=== PATIENT | male | born 1975 | race African-American/Black ===

== ENCOUNTER → 2018-03-19 | Outpatient (REF) | payer BC ==
[2018-03-19 22:02] LABS: APPEARANCE, URINE CLEAR (CLEAR); BACTERIA, URINE AUTO NEGATIVE (NEGATIVE); BILIRUBIN, URINE AUTO NEGATIVE (NEGATIVE); BLOOD, URINE BLOOD NEGATIVE (NEGATIVE); COLOR, URINE YELLOW (YELLOW); GLUCOSE, URINE (UA) AUTO NEGATIVE (NEGATIVE); KETONE, URINE AUTO NEGATIVE (NEGATIVE); LEUKOCYTE ESTERASE, URINE AUTO NEGATIVE (NEGATIVE); MUCUS, URINE SMALL (NEGATIVE); NITRITE, URINE AUTO NEGATIVE (NEGATIVE); PROTEIN, URINE AUTO NEGATIVE (NEGATIVE); RBC, URINE AUTO 0 /HPF (0-3); SPECIFIC GRAVITY URINE AUTO 1.019 (1.002-1.035); SQUAMOUS EPITHELIAL CELL UR AU 0 /HPF (0-6); UROBILINOGEN, URINE AUTO 0.2 mg/dL (0.0-2.0); WBC, URINE AUTO 0 /HPF (0-3)
== END ==
LOC: M LAB REF 09:56
DX: N39.0 Urinary tract infection, site not specified (principal)
CPT/HCPCS: 81001

== ENCOUNTER 2020-06-15 16:36 | Emergency (ER) | payer BC ==
[~2020-06-15] VITALS: Ht 180.3 cm; Wt 84.1 kg
[2020-06-15] MEDS ORDERED: LOSA50TA88 (16:48)
[2020-06-15] MEDS ORDERED: AMLO2.5T3 (16:48)
--- NOTE | 2020-06-15 17:02 | REPVR ---
PROCEDURE INFORMATION: Exam: XR Chest, 1 View Exam date and time: 06/15/2020 4:42 PM Age: 45 years old Clinical indication: Chest pain TECHNIQUE: Imaging protocol: XR of the chest Views: 1 view. COMPARISON: No relevant prior studies available. FINDINGS: Lungs: Unremarkable. No consolidation. Pleural space: Unremarkable. No pleural effusion. No pneumothorax. Heart/Mediastinum: Unremarkable. No cardiomegaly. Bones/joints: Unremarkable. IMPRESSION: No evidence for acute pulmonary disease. Electronically signed by: Austen Campos On 06/15/2020 17:02:46 PM
[2020-06-15 18:13] LABS: BASO # 0.1 10^3/uL (0.0-0.2); EOS # 0.1 10^3/uL (0.0-0.5); EOS % 1.9 % (0.0-3.0); HEMOGLOBIN 12.7 g/dl (13.5-17.5); LYMPH # 1.2 10^3/uL (1.5-5.0); LYMPH % 20.9 % (24.0-44.0); MEAN CORPUSCULAR HEMOGLOBIN 23.3 pg (27.0-33.0); MEAN CORPUSCULAR HGB CONC 29.5 g/dl (32.0-36.5); MEAN CORPUSCULAR VOLUME 78.8 fl (80.0-96.0); MONO # 0.5 10^3/uL (0.0-0.8); MONO % 8.8 % (0.0-5.0); NEUTROPHILS % 66.9 % (36.0-66.0); PLATELET COUNT, AUTOMATED 257 10^3/uL (150-450); RED BLOOD COUNT 5.46 10^6/uL (4.30-6.10); WHITE BLOOD COUNT 5.9 10^3/uL (4.0-10.0)
[2020-06-15 18:24] LABS: INR 1.06
[2020-06-15 18:35] LABS: ALBUMIN 3.9 GM/DL (3.2-5.2); BILIRUBIN,DIRECT 0.1 MG/DL (0.0-0.2); BILIRUBIN,TOTAL 0.7 MG/DL (0.2-1.0); CALCIUM LEVEL 9.3 MG/DL (8.5-10.1); CK-MB VALUE MASS 1.7 NG/ML (<3.6); CREATININE FOR GFR 1.38 MG/DL (0.70-1.30); GLOMERULAR FILTRATION RATE 59.6 (>60); MB/CK RELATIVE INDEX 0.35 (< OR =4); POTASSIUM SERUM 4.4 MEQ/L (3.5-5.1); TOTAL PROTEIN 7.7 GM/DL (6.4-8.2); TROPONIN I 0.04 NG/ML (< 0.10)
[2020-06-15] MEDS ORDERED: ISOVUE-370 76% 100ML VIAL As Ordered ONE (18:51)
--- NOTE | 2020-06-15 20:24 | REPVR ---
PROCEDURE INFORMATION: Exam: CT Angiography Chest With Contrast Exam date and time: 06/15/2020 7:43 PM Age: 45 years old Clinical indication: Other: R/O pe TECHNIQUE: Imaging protocol: Computed tomographic angiography of the chest with intravenous contrast. 3D rendering (Not supervised by radiologist): MIP and/or 3D reconstructed images were created by the technologist. Radiation optimization: All CT scans at this facility use at least one of these dose optimization techniques: automated exposure control; mA and/or kV adjustment per patient size (includes targeted exams where dose is matched to clinical indication); or iterative reconstruction. Contrast material: ISOVUE 370; Contrast volume: 100 ml; Contrast route: INTRAVENOUS (IV); COMPARISON: CR PORTABLE CHEST X-RAY 06/15/2020 4:48 PM FINDINGS: Pulmonary arteries: Normal. No pulmonary emboli. Aorta: Unremarkable. No aortic aneurysm. No aortic dissection. Lungs: Unremarkable. No consolidation. No masses. Pleural space: Unremarkable. No pneumothorax. No pleural effusion. Heart: Unremarkable. No cardiomegaly. No pericardial effusion. Lymph nodes: Unremarkable. No enlarged lymph nodes. Bones/joints: Unremarkable. No acute fracture. Soft tissues: Unremarkable. IMPRESSION: No acute findings. Electronically signed by: Tita Coates On 06/15/2020 20:23:55 PM
--- NOTE | 2020-06-15 20:35 | REPVR ---
PROCEDURE INFORMATION: Exam: CT Abdomen With Contrast Exam date and time: 06/15/2020 7:43 PM Age: 45 years old Clinical indication: Abnormal findings; Abnormal lab test; Elevated lipase; Additional info: Elevated lipase R/O pancreatitis TECHNIQUE: Imaging protocol: Computed tomography images of the abdomen with intravenous contrast. Radiation optimization: All CT scans at this facility use at least one of these dose optimization techniques: automated exposure control; mA and/or kV adjustment per patient size (includes targeted exams where dose is matched to clinical indication); or iterative reconstruction. Contrast material: ISOVUE 370; Contrast volume: 100 ml; Contrast route: INTRAVENOUS (IV); COMPARISON: No relevant prior studies available. FINDINGS: Liver: There are no focal liver lesions. Gallbladder and bile ducts: The gallbladder is unremarkable. Pancreas: No peripancreatic stranding is apparent. The pancreas does not appear edematous. The pancreatic duct is not dilated. Spleen: The spleen is normal. Adrenals: The adrenal glands are unremarkable. Kidneys and ureters: The kidneys are unremarkable. Stomach and bowel: There is no evidence of intestinal obstruction. Intraperitoneal space: Unremarkable. No free air. No significant fluid collection. Lymph nodes: Unremarkable. No enlarged lymph nodes. Vasculature: There is no evidence of an infrarenal abdominal aortic aneurysm. Bones/joints: Unremarkable. Soft tissues: There is a fat-containing umbilical hernia. IMPRESSION: No CT scan evidence of pancreatitis. The tissue planes are all clearly visualized without evidence of peripancreatic stranding or edema within the parenchyma. Electronically signed by: Tita Coates On 06/15/2020 20:34:45 PM
[2020-06-15 21:13] VITALS: BP 148/85
--- NOTE | 2020-06-21 20:50 | ECGEPIP ---
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
== END 2020-06-15 21:47 | disposition home or self-care (01) ==
LOC: M ED 16:36
DX: R07.89 Other chest pain (principal); I10 Essential (primary) hypertension; Z79.899 Other long term (current) drug therapy
CPT/HCPCS: 36415; 71045; 71275; 74160; 80053; 82150; 82248; 82550; 82553; 83690; 84484; 85025; 85610; 93005; 93041; 94760; 99284; Q9967